=== PATIENT | female | born 2000 | race Caucasian/White ===

== ENCOUNTER 2020-03-18 21:03 | Emergency (ER) | payer OTHER ==
[~2020-03-18] VITALS: Ht 177.8 cm; Wt 65.8 kg
[2020-03-18] MEDS ORDERED: DOLOGEN CAPLET1 EACH PO (23:08)
== END 2020-03-18 23:54 | disposition home or self-care (01) ==
LOC: ER 21:03 → EMR PED 21:07 → ER 21:07
DX: R50.9 Fever, unspecified (principal)

== ENCOUNTER 2020-03-22 11:28 | Emergency (ER) | payer OTHER ==
[~2020-03-22] VITALS: Ht 177.8 cm; Wt 62.1 kg
[~2020-03-22 11:28] MED LIST: DOLOGEN CAPLET1 EACH PO
[2020-03-22] MEDS ORDERED: ARTHRITIS PAIN650 MG (11:37)
[2020-03-22] MEDS ORDERED: NORFLEX100MG PO (15:02)
== END 2020-03-22 15:22 | disposition home or self-care (01) ==
LOC: ER 11:28
DX: B34.9 Viral infection, unspecified (principal)

== ENCOUNTER 2022-12-12 21:47 | Emergency (ER) | payer OTHER ==
[~2022-12-12] VITALS: Ht 180.3 cm; Wt 68.0 kg
[~2022-12-12 21:47] MED LIST changes: +ARTHRITIS PAIN650 MG; +NORFLEX100MG PO
[2022-12-13] MEDS ORDERED: NORFLEX100MG PO (02:15)
[2022-12-13] MEDS ORDERED: KETO10TA2 PO (02:15)
== END 2022-12-13 02:34 | disposition home or self-care (01) ==
LOC: ER 21:47
DX: M54.50 Low back pain, unspecified (principal); Z91.040 Latex allergy status; Z20.822 Contact with and (suspected) exposure to COVID-19

== ENCOUNTER 2024-07-10 08:20 | Outpatient (CLI) | payer OTHER ==
[~2024-07-10 08:20] MED LIST changes: +KETO10TA2 PO
== END 2024-07-10 08:32 | disposition home or self-care (01) ==
LOC: MRI 08:20
PROVIDERS: ATTEND Obstetrics & Gynecology
DX: N93.8 Other specified abnormal uterine and vaginal bleeding (principal); D25.9 Leiomyoma of uterus, unspecified
CPT/HCPCS: 72197